=== PATIENT | male | born 1990 | race Caucasian/White ===

== ENCOUNTER → 2017-04-29 | Emergency (ER) | payer SELFPAY ==
--- NOTE | 2017-04-29 19:46 | ED NURSING NOTES ---
Clinical Report - Nurses [place] [address] [place] [address] 04/29/2017 18:31 Patient: CHER PRATT *This is a preliminary document and is subject to change DISPOSITION / DISCHARGE Departure time: 19:45. The patient left the Emergency Department before triage. The patient did not notify the ED staff prior to leaving the department. --19:45 Jolene Cabrera ER Tech1. This report is not final
--- NOTE | 2017-04-29 19:46 | ED NURSING NOTES ---
Clinical Report - Nurses [place] [address] [place] [address] 04/29/2017 18:31 Patient: CHER PRATT *This is a preliminary document and is subject to change DISPOSITION / DISCHARGE Departure time: 19:45. The patient left the Emergency Department before triage. The patient did not notify the ED staff prior to leaving the department. --19:45 Jolene Cabrera ER Tech1. This report is not final
== END ==
LOC: ED SRH 18:29
DX: Z53.21 Procedure and treatment not carried out due to patient leaving prior to being seen by health care provider (principal)